=== PATIENT | female | born 1995 | race Caucasian/White ===

== ENCOUNTER 2019-04-29 10:46 | Emergency (ER) | payer MEDICAID, OTHER ==
[2019-04-29 11:19] VITALS: BP 139/69
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
== END 2019-04-29 12:09 | disposition home or self-care (01) ==
LOC: UCCORT 10:46
DX: O26.893 Other specified pregnancy related conditions, third trimester (principal); Z3A.29 29 weeks gestation of pregnancy; S93.401A Sprain of unspecified ligament of right ankle, initial encounter; S93.601A Unspecified sprain of right foot, initial encounter; S86.011A Strain of right Achilles tendon, initial encounter; V19.3XXA Pedal cyclist (driver) (passenger) injured in unspecified nontraffic accident, initial encounter; Y93.55 Activity, bike riding; Y92.9 Unspecified place or not applicable
CPT/HCPCS: 99212; G0463